=== PATIENT | male | born 1985 | race Two or more races ===

== ENCOUNTER 2018-08-21 13:17 | Emergency (ER) | payer OTHER ==
[~2018-08-21] VITALS: Ht 157.5 cm; Wt 43.3 kg
--- NOTE | 2018-08-21 13:32 | NUR ---
[place] RA 37 from [facility] [place] "Behavioral/not wanting to talk. Uncooperative". PT STATES NOT SURE WHY HE'S HERE, NO COMPLAINTS AT THIS TIME. AOX3, AMBU, VSS, RR EVEN AND UNLABORED. NO ACUTE DISTRESS NOTED. READY FOR EVAL.
[2018-08-21 15:23] LABS: APPEARANCE,URINE Clear (CLEAR); BILIRUBIN,URINE Negative (NEGATIVE); BLOOD, URINE Negative Ery/uL (NEGATIVE); COLOR,URINE Yellow (YELLOW); KETONES,URINE Negative (NEGATIVE); LEUKOCYTE ESTERASE ,URINE Negative (NEGATIVE); NITRITE, URINE Negative (NEGATIVE); PROTEIN,URINE 30 mg/dl (NEGATIVE); UGLUCOSE Negative (NEGATIVE); UROBILINOGEN,URINE 0.2 EU/dL (0.2)
--- NOTE | 2018-08-21 15:48 | NUR ---
Patient is resting comfortably in bed with eyes closed. Easily aroused. VSS
[2018-08-21 15:58] LABS: BASOPHILS % (AUTO) 0.3 % (0.0-2.0); EOSINOPHILS % (AUTO) 1.5 % (0.0-6.0); HEMATOCRIT 37 % (39-51); HEMOGLOBIN 12.1 g/dL (13.5-17.5); LYMPHOCYTES % (AUTO) 32.5 % (20.0-44.0); MEAN CORPUSCULAR HGB CONC 33 g/dl (31.0-36.0); MEAN CORPUSCULAR VOLUME 86 fL (80-96); MONOCYTES # (AUTO) 0.2 /CMM (0.1-1.30); MONOCYTES % (AUTO) 7.4 % (2.0-12.0); NEUTROPHILS # (AUTO) 1.9 /CMM (1.8-8.9); NEUTROPHILS % (AUTO) 58.3 % (43.0-81.0); PLATELET COUNT (AUTO) 131 /CMM (150-450); RED BLOOD CELL COUNT(AUTO) 4.35 MIL/uL (4.5-6.0); WHITE BLOOD COUNT (AUTO) 3.2 K/uL (4.3-11.0)
[2018-08-21 16:05] LABS: CALCIUM, SERUM 9.1 mg/dL (8.5-10.1); CARBON DIOXIDE 29 mmol/L (21-32); CHLORIDE 102 mmol/L (98-107); CREATININE 0.6 mg/dL (0.6-1.3); GLUCOSE 126 mg/dL (74-106); POTASSIUM 4.2 mmol/L (3.5-5.1); SODIUM SERUM 136 mmol/L (136-145); UREA NITROGEN, BLOOD 8 mg/dL (7-18)
[2018-08-21 16:11] LABS: ACETAMINOPHEN 0 ug/ml (10-30); ALANINE AMINOTRANSFERASE 13 U/L (12-78); ALBUMIN 3.8 g/dL (3.4-5.0); ALCOHOL, BLOOD < 3 mg/dL (0-0); ALKALINE PHOSPHATASE 68 U/L (46-116); ASPARTATE AMINOTRANSFERASE 16 U/L (15-37); BILIRUBIN,DIRECT 0.1 mg/dL (0.0-0.2); BILIRUBIN,TOTAL 0.2 mg/dL (0.2-1.0); SALICYLATE 4.2 mg/dL (2.8-20.0); TOTAL PROTEIN, SERUM 8.4 g/dL (6.4-8.2)
[2018-08-21 16:12] LABS: BACTERIA,URINE Rare /HPF (None Seen); RBC,URINE 0-2 /HPF (0-2); SQUAMOUS EPITHELIAL CELL,UR Rare /HPF (None Seen); URINE AMORPHOUS URATE Few /HPF (None Seen); WBC,URINE 0-2 /HPF (0-3)
--- NOTE | 2018-08-21 16:35 | NUR ---
CALLED [facility] FOR TRANSPORT ETA OF 1814 WAS GIVEN. TRIP#[id number]
--- NOTE | 2018-08-21 17:01 | NUR ---
CALLED [facility] INTAKE [phone] THEY HAVE BEDS AND WAITING.
[2018-08-21 17:27] VITALS: BP 120/78
--- NOTE | 2018-08-21 17:34 | NUR ---
Patient is resting comfortably in bed with eyes closed. Easily aroused. VSS
--- NOTE | 2018-08-21 18:13 | NUR ---
REPORT GIVEN TO JUN EMT FOR TRANSPORT. SANDWICH AND JUICE PROVIDED TO PT
--- NOTE | 2018-08-21 18:30 | NUR ---
Patient discharged to [facility] in stable condition. Written and verbal after care instructions given. Patient verbalizes understanding of instruction.
--- NOTE | 2018-08-21 18:30 | NUR ---
Nara robledo in EDM - 08/21/18 at 2005 by CARLOS Patient discharged to home in stable condition. Written and verbal after care instructions given. Patient verbalizes understanding of instruction.
== END 2018-08-21 18:30 ==
LOC: ER 13:21
DX: F20.9 Schizophrenia, unspecified (principal); F19.10 Other psychoactive substance abuse, uncomplicated; D61.818 Other pancytopenia; F32.9 Major depressive disorder, single episode, unspecified; F17.200 Nicotine dependence, unspecified, uncomplicated
CPT/HCPCS: 36415; 80048; 80076; 80305; 80307; 80329; 81001; 85025; 99284; G0480; 81000-TC

== ENCOUNTER 2020-10-16 08:42 | Emergency (ER) | payer MEDICAID, OTHER ==
[~2020-10-16] VITALS: Ht 175.3 cm; Wt 49.9 kg
--- NOTE | 2020-10-16 09:00 | NUR ---
THE PATIENT BIBS FOR C/O SI/HI. +PLAN TO RUN IN FRONT OF TRAIN/TRAFFIC, KILL BUS DRIVERS.REQUESTING VOLUNTARY PSYCH ADMISSION. THE PATIENT IS ALERT AND ORIENTED X3. DENIES PAIN. IN ROOM AIR AND DENIES SOB. RESPIRATION REGULAR AND UNLABORED. SAFETY CHECK DONE. SITTER PRESENT. WILL CONTINUE TO MONITOR THE PATIENT.
[2020-10-16 09:15] LABS: BASOPHILS % (AUTO) 0.1 % (0.0-2.0); EOSINOPHILS % (AUTO) 0.2 % (0.0-6.0); HEMATOCRIT 35 % (39-51); HEMOGLOBIN 11.6 g/dL (13.5-17.5); LYMPHOCYTES # (AUTO) 1.1 /CMM (0.8-4.8); LYMPHOCYTES % (AUTO) 18.5 % (20.0-44.0); MEAN CORPUSCULAR HGB CONC 33 g/dl (31.0-36.0); MEAN CORPUSCULAR VOLUME 92 fL (80-96); MONOCYTES # (AUTO) 0.5 /CMM (0.1-1.30); MONOCYTES % (AUTO) 8.6 % (2.0-12.0); NEUTROPHILS # (AUTO) 4.2 /CMM (1.8-8.9); NEUTROPHILS % (AUTO) 72.6 % (43.0-81.0); PLATELET COUNT (AUTO) 155 /CMM (150-450); RED BLOOD CELL COUNT(AUTO) 3.84 MIL/uL (4.5-6.0); WHITE BLOOD COUNT (AUTO) 5.9 K/uL (4.3-11.0)
[2020-10-16 09:19] LABS: BILIRUBIN,URINE Negative (NEGATIVE); COLOR,URINE YELLOW (YELLOW); LEUKOCYTE ESTERASE ,URINE Negative (NEGATIVE); NITRITE, URINE Negative (NEGATIVE); PROTEIN,URINE Negative (NEGATIVE); UGLUCOSE Negative (NEGATIVE); UROBILINOGEN,URINE 0.2 EU/dL (0.2)
[2020-10-16 09:40] LABS: CALCIUM, SERUM 9.6 mg/dL (8.5-10.1); CARBON DIOXIDE 27 mmol/L (21-32); CHLORIDE 100 mmol/L (98-107); CREATININE 0.6 mg/dL (0.6-1.3); GLUCOSE 75 mg/dL (74-106); POTASSIUM 3.5 mmol/L (3.5-5.1); SODIUM SERUM 138 mmol/L (136-145); UREA NITROGEN, BLOOD 15 mg/dL (7-18)
[2020-10-16 09:47] LABS: ACETAMINOPHEN 0 ug/ml (10-30); ALANINE AMINOTRANSFERASE 25 U/L (12-78); ALBUMIN 4.1 g/dL (3.4-5.0); ALCOHOL, BLOOD < 3 mg/dL (0-0); ALKALINE PHOSPHATASE 71 U/L (46-116); ASPARTATE AMINOTRANSFERASE 22 U/L (15-37); BILIRUBIN,DIRECT 0.1 mg/dL (0.0-0.2); BILIRUBIN,TOTAL 0.4 mg/dL (0.2-1.0); TOTAL PROTEIN, SERUM 8.6 g/dL (6.4-8.2)
[2020-10-16 09:50] LABS: RBC,URINE NONE SEEN /HPF (0-2)
[2020-10-16 09:51] LABS: BACTERIA,URINE None seen /HPF (None Seen); SQUAMOUS EPITHELIAL CELL,UR Rare /HPF (None Seen); WBC,URINE NONE SEEN /HPF (0-3)
--- NOTE | 2020-10-16 10:20 | NUR ---
"Line Analyst consult: visitor services technician consult requested for suicidal ideation, homelessness, and substance use. Patient is 34-year-old, male. SW met with patient at his bedside in the emergency department. Patient was alert and oriented x4. Patient was calm and resting. Per chart, patient presented with suicidal and homicidal ideation on 10/16/20 and requested voluntary inpatient psychiatric placement. Upon consult, patient stated that he is currently experiencing suicidal ideations, without a plan, and requested voluntary inpatient psychiatric placement to [facility]. SW will fax clinicals to [facility] for review. Patient denied homicidal ideation but stated people on the bus were harassing me and telling me to go to the back of the bus. SW assessed patients history of mental illness and patient reported a history of Schizophrenia and Depression. Patient denied history or current hallucinations and delusions. Patient stated that he has been prescribed Risperdal and Trazodone. SW asked patient if he has access to support and patient stated that he has access to a case consultant and therapist at [facility] ([address] [facility]; ). Patient stated that he is currently homeless and receives SSI as a source of income. Patient reported current substance use which includes, cannabis (daily) and methamphetamine use (1x/week). SW offered patient homeless and substance use resources. Patient accepted the resources and thanked SW. Patient signed the homeless waiver and SW filed waiver in the patients chart. JOSEF will fax clinicals to [facility], , for review. PLAN: JOSEF will fax clinicals to [facility] for review. No further SS intervention, however, SW will remain available as needed. RESOURCES: Year-round shelters: [place] [address] [place] [address] ; [place] [facility] [place] [address] [place] [address]; [place] [facility] Svcfqkw0771 [facility]. [facility] [address] SPA 4 | [facility] [place] Provider: First to Serve Address: [address] [place] [address], [facility] # of Beds: 48 Population Served: Coed [facility] Provider: First to Serve Address: [address] [facility] [place], [address] # of Beds: 73 Population Served: Coed SPA 6 | [facility] Provider: Home at Last Address: [address] [facility], [address] # of Beds: 63 Population Served: Coed SPA 3 | [facility] Provider: [facility] [place] Address: [address] [facility], [address] # of Beds: 75 Population Served: Coed SPA 8 | [facility] Provider: [facility] [place] Address: [address] [facility], [address] # of Beds: 80 Population Served: Coed SPA 1 | [facility] Provider: [facility] [place] Address: [address] [place] [address], [address] # of Beds: 85 Population Served: Coed [facility] 2 | [facility] Provider: Jillian [facility] Address: Confidential (please call for location) # of Beds: 52 Population Served: Aldaird [facility] 4 | [facility] Provider: San[facility] Address: 5[address] [facility], [address] # of Beds: 49 Population Served: Jada [facility] Provider: First To Serve Address: 313 [facility], [address] # of Beds: 27 Population Served: Aldaird Hygiene: [facility]: [address] [place] ; [place] [facility] [address]28 [facility] ; [facility] [address] . Food Resources: [place] [facility] at [facility]- [address] [place]; Meet Each Need with Dignity ([facility]) [address] [place]; [facility] Food Pantry 4390 [facility]; [facility] 8544 [facility]iter[facility]. Mental Health resources provided: [facility] [address] [place] [address] ; [facility] Health [place], Inc. 39886 [facility] [address], [place] [address] ; [facility] [address] [facility] [place] [address] ; [facility] [address] [place], [place] [phone] Healthcare Clinics: [facility] 6551 [facility], [address] [place]. [place] ; [facility] 6801 [facility] [address] [place] [address]; [facility] 60887 [facility]. [place] [phone] Counseling--Outpatient [facility] 4419 [facility], [address] [place], [place] [phone] (Specializes in in-depth psychotherapy for emotional distress: anxiety, depression, interpersonal conflicts, life transitions, childhood abuse) PSYCHIATRIC OUTPATIENT SERVICES [facility] Partial Hospitalization and Intensive Outpatient Program (Managed Care and [place] Only) 00220 Critical access hospital [phone] [facility] Partial Hospitalization and Outpatient Program [address] [facility] [facility]. [address] [place], [place] [phone] [facility] Partial Hospitalization and Outpatient Program 4911 [facility]. [place], [place] [phone] [facility] Mental Health [facility] [place] Inc [address] [facility]. [address] [place], [place] [phone] [facility] Partial Hospitalization and Outpatient Program [address] [place], [place] [phone] Substance use resources provided included: [facility] Substance Abuse Self-Helpline (SAS) ; CRI -HELP 68763 [facility]. [place] [address]24971 ; [facility] 85572 [facility] [address] ; [facility] 400 [facility] [address]0004 ; [facility] 8873 [facility] [address] ; [facility] 909 [facility] [phone] ; [facility]; Cri-Help [place]; [place] Herminie Nicki; Alcoholics Anonymous -SFV"
--- NOTE | 2020-10-16 10:25 | NUR ---
Journal Clerk note: JOSEF faxed clinicals to [facility], , for review.
--- NOTE | 2020-10-16 10:30 | NUR ---
PER EXPLOSIVE ORDNANCE DISPOSAL MANAGER MIREYA, PAPERS SENT TO [facility]
--- NOTE | 2020-10-16 11:43 | NUR ---
PER SOCIAL WORKMARTIN THE PATIENT IS ACCESPTED SO JULITO CAMARGO AND MAY GIVE REPORT AT 1215.
--- NOTE | 2020-10-16 12:34 | NUR ---
[facility] ETA 1013
--- NOTE | 2020-10-16 12:54 | NUR ---
REPORT GIVEN TO NURSE ROBERTS
[2020-10-16 13:15] VITALS: BP 133/84
--- NOTE | 2020-10-16 13:15 | NUR ---
THE PATIENT IS DISCHARGED FROM ER IN STABLE CONDITON VIA ARRANGED TRANSPO.
== END 2020-10-16 13:16 ==
LOC: ER 08:51
DX: R45.851 Suicidal ideations (principal); F19.10 Other psychoactive substance abuse, uncomplicated; F20.9 Schizophrenia, unspecified; Z91.14 Patient's other noncompliance with medication regimen; Z59.0 Homelessness; Z20.822 Contact with and (suspected) exposure to COVID-19
CPT/HCPCS: 36415; 80048; 80076; 80143; 80307; 80320; 81001; 85025; 87426; 99285; C9803; G0480

== ENCOUNTER 2020-11-30 02:13 | Emergency (ER) | payer MEDICAID ==
[~2020-11-30] VITALS: Ht 157.5 cm; Wt 59.4 kg
--- NOTE | 2020-11-30 02:30 | NUR ---
PATIENT BIBSELF C/O +SI WITH PLAN "SUICIDE BY POLICE", -HI. PATIENT RR EVEN AND UNLABORED, NO SIGNS OF SOB NOTED. PATIENT BELONGINGS TAKEN AND PLACED IN LOCKER, PATIENT PLACED IN GOWN. SITTER IS AT BEDSIDE. PATIENT PLACED ON CARDIAC AND POX MONITOR.
[2020-11-30 02:46] LABS: CALCIUM, SERUM 9.2 mg/dL (8.5-10.1); CARBON DIOXIDE 28 mmol/L (21-32); CHLORIDE 100 mmol/L (98-107); CREATININE 0.5 mg/dL (0.6-1.3); GLUCOSE 96 mg/dL (74-106); POTASSIUM 3.4 mmol/L (3.5-5.1); SODIUM SERUM 138 mmol/L (136-145); UREA NITROGEN, BLOOD 10 mg/dL (7-18)
[2020-11-30 02:51] LABS: ALANINE AMINOTRANSFERASE 18 U/L (12-78); ALBUMIN 3.6 g/dL (3.4-5.0); ALCOHOL, BLOOD < 3 mg/dL (0-0); ALKALINE PHOSPHATASE 68 U/L (46-116); ASPARTATE AMINOTRANSFERASE 17 U/L (15-37); BILIRUBIN,DIRECT 0.1 mg/dL (0.0-0.2); BILIRUBIN,TOTAL 0.2 mg/dL (0.2-1.0); TOTAL PROTEIN, SERUM 8.2 g/dL (6.4-8.2)
[2020-11-30 02:52] LABS: ACETAMINOPHEN 0 ug/ml (10-30)
[2020-11-30 03:10] LABS: BASOPHILS % (AUTO) 0.3 % (0.0-2.0); EOSINOPHILS % (AUTO) 0.6 % (0.0-6.0); HEMATOCRIT 34 % (39-51); LYMPHOCYTES # (AUTO) 1.5 K/uL (0.8-4.8); LYMPHOCYTES % (AUTO) 26.2 % (20.0-44.0); MEAN CORPUSCULAR HGB CONC 33 g/dl (31.0-36.0); MEAN CORPUSCULAR VOLUME 91 fL (80-96); MONOCYTES # (AUTO) 0.6 K/uL (0.1-1.30); MONOCYTES % (AUTO) 10.5 % (2.0-12.0); NEUTROPHILS # (AUTO) 3.5 K/uL (1.8-8.9); NEUTROPHILS % (AUTO) 62.4 % (43.0-81.0); PLATELET COUNT (AUTO) 53 K/uL (150-450); RED BLOOD CELL COUNT(AUTO) 3.69 MIL/uL (4.5-6.0); WHITE BLOOD COUNT (AUTO) 5.6 K/uL (4.3-11.0)
[2020-11-30 03:13] LABS: BILIRUBIN,URINE SMALL (NEGATIVE); COLOR,URINE DARK YELLOW (YELLOW); LEUKOCYTE ESTERASE ,URINE NEGATIVE (NEGATIVE); NITRITE, URINE NEGATIVE (NEGATIVE); PROTEIN,URINE NEGATIVE (NEGATIVE); UGLUCOSE NEGATIVE (NEGATIVE)
[2020-11-30 03:23] LABS: BACTERIA,URINE None seen /HPF (None Seen); RBC,URINE 0-2 /HPF (0-2); SQUAMOUS EPITHELIAL CELL,UR None Seen /HPF (None Seen); WBC,URINE 0-2 /HPF (0-3)
--- NOTE | 2020-11-30 03:48 | NUR ---
FACESHEET AND CLINICALS FAXED TO RASHAAD LOPEZ.
--- NOTE | 2020-11-30 05:30 | NUR ---
PATINET VSS, PATIENT IN NO ACUTE DISTRESS. WILL CONTINUE TO MONITOR.
[2020-11-30] MEDS ORDERED: LORAZEPAM 1 MG TABLET ONE (09:34)
[2020-11-30] MEDS ORDERED: LORAZEPAM 1 MG TABLET PO ONE (10:00)
--- NOTE | 2020-11-30 10:00 | NUR ---
ACCEPTED AT [facility] GIVE REPORT TO: NATHALIE [phone]
--- NOTE | 2020-11-30 10:01 | NUR ---
CALLED TRANSPORT XANDER LO 45 MINS.
--- NOTE | 2020-11-30 10:45 | NUR ---
Crime Prevention Worker consult: family services worker consult requested for suicidal ideation, homelessness, and substance use. Patient is 35-year-old, male. SW met with patient in the waiting room of the emergency department. Patient was alert and oriented x4. Patient presented calm and appeared appropriately well-groomed. Per chart, patient was brought in to the hospital by self on 11/30/20, presenting with suicidal ideation with a plan,"suicide by police" Patient requested voluntary psychiatric admission. Patient has been accepted to [facility]. Upon consult, patient stated that he is currently experiencing suicidal ideations, with a plan to hang himself and requested voluntary inpatient psychiatric [facility] to [facility]. Patient denied homicidal ideation. SW assessed patients history of mental illness and patient reported a history of Paranoid Schizophrenia and Depression. Patient denied history or current hallucinations and delusions. Patient stated that he has been prescribed Risperdal and Trazodone. SW asked patient if he has access to support and patient stated that he currently has no access to support. Patient stated that he is currently homeless and receives SSI as a source of income. Patient reported current substance use which includes, cannabis (daily) and methamphetamine use (1x/week). SW offered patient homeless, mental health, and substance use resources. Patient accepted the resources and thanked SW. Patient signed the homeless waiver and SW filed waiver in the patients chart. Patient will be transferred to [facility] ([address] [place] [address]; ). PLAN: Patient will be transferred to [facility]. No further SS intervention, however, SW will remain available as needed. RESOURCES: Year-round shelters: [place] [address] [place] [address] ; [place] [facility] [place] [address] [place] [address]; [place] [facility] [id number] [facility]. [facility] [address] SPA 4 | [facility] [place] Provider: First to Serve Address: [address] [place] [address] # of Beds: 48 Population Served: Jada [facility] Provider: First to Serve Address: 7870 [facility] [address] # of Beds: 73 Population Served: Coed SPA 6 | [facility] Provider: Home at Last Address: [address] [facility], [address] # of Beds: 63 Population Served: Coed SPA 3 | [facility] Provider: [facility] [place] Address: 510 [facility], [address] # of Beds: 75 Population Served: Coed SPA 8 | [facility] Provider: [facility] [place] Address: 0477 [facility], [address] # of Beds: 80 Population Served: Coed SPA 1 | [facility] Provider: [facility] [place] Address: [address] [place] [address], [address] # of Beds: 85 Population Served: Coed SPA 2 | [facility] Provider: [facility] Address: Confidential (please call for location) # of Beds: 52 Population Served: [facility] 4 | [facility] Provider: [facility] Address: 5[address] [facility], [address] # of Beds: 49 Population Served: [facility] Provider: First To Serve Address: [address] [place] [address], [address] # of Beds: 27 Population Served: [facility] Hygiene: [facility]: [address] [place] ; [facility] 18825 [facility] ; [facility] [address] . Food Resources: David Food Pantry at [facility]- [address] [place]; Meet Each Need with Dignity ([facility]) [address] [facility]; [facility] 0796 [place]; Our [facility][Note 3] [address] [facility]. Mental Health resources provided: [facility] [address] [place], [place] [address] ; [facility] Health [place], Inc. 24492 [facility] [address], [place], [place] [phone] ; [facility] Urgent Care Center 14291 [place] Jimmy Manuel[place]ads, [place] [phone] ; [facility] [address] [place], [place] [phone] Healthcare Clinics: [facility] 6551 [facility], [address] [place]. [place] ; [facility] 6801 [facility] [address] [place] [address]; [facility] [address]38 [facility] [place] [address] [phone] Counseling--Outpatient [facility] 4419 [facility], [place] [address] (Specializes in in-depth psychotherapy for emotional distress: anxiety, depression, interpersonal conflicts, life transitions, childhood abuse) PSYCHIATRIC OUTPATIENT SERVICES [facility] Partial Hospitalization and Intensive Outpatient Program (Managed Care and [place] Only) 99233 [facility] [phone] [facility] Partial Hospitalization and Outpatient Program 97357 [facility]. [address] [place], [place] [phone] [facility] Partial Hospitalization and Outpatient Program 4911 [facility]. [place], [place] [phone] [facility] Mental Health [place] Inc [address] [facility]. [address] [place], [place] [address] [facility] Partial Hospitalization and Outpatient Program [address] [place], [place] [phone] Substance use resources provided included: [facility] Substance Abuse Self-Helpline (SAS) ; CRI -HELP 13781 [facility] [address] ; [facility] 32645 [facility] [address] ; [facility] 400 [facility] [phone] ; [facility] 7170 [facility] [address] ; [facility] 909 [facility] [phone] ; [facility]; Cri-Help [place]; [place] Nicki; Alcoholics Anonymous -SFV
--- NOTE | 2020-11-30 10:53 | NUR ---
report given to hemal gallagher at [facility].
[2020-11-30 11:00] VITALS: BP 129/70
--- NOTE | 2020-11-30 11:30 | NUR ---
patient picked up by private ambulance [facility] in no distress.
== END 2020-11-30 12:02 ==
LOC: ER 02:13
DX: R45.851 Suicidal ideations (principal); M34.9 Systemic sclerosis, unspecified; F20.0 Paranoid schizophrenia; Z20.822 Contact with and (suspected) exposure to COVID-19
CPT/HCPCS: 36415; 80048; 80076; 80143; 80307; 80320; 81001; 85025; 87426; 99285; C9803; G0480

== ENCOUNTER 2020-12-30 06:10 | Emergency (ER) | payer MEDICAID ==
[~2020-12-30] VITALS: Ht 167.6 cm; Wt 44.5 kg
--- NOTE | 2020-12-30 06:41 | NUR ---
PT BIBS FOR C/O DEPRESSION AND SUICIDAL. REQUESTING VOLUNTARY PSYCH ADMISSION. DOES NOT HAVE ANY PLAN. ALERT AND ORIENTED X3. AMBULATORY WITH NON LABORED BREATHING.
[2020-12-30 06:47] VITALS: BP 128/80
--- NOTE | 2020-12-30 07:10 | NUR ---
COVID SWAB TAKEN AND SENT TO LAB.
--- NOTE | 2020-12-30 07:10 | NUR ---
FACILITY EXAMINER AT BEDSIDE.
[2020-12-30 07:28] LABS: BASOPHILS % (AUTO) 0.6 % (0.0-2.0); EOSINOPHILS % (AUTO) 0.7 % (0.0-6.0); HEMATOCRIT 36 % (39-51); HEMOGLOBIN 11.6 g/dL (13.5-17.5); LYMPHOCYTES # (AUTO) 1.4 K/uL (0.8-4.8); LYMPHOCYTES % (AUTO) 24.8 % (20.0-44.0); MEAN CORPUSCULAR HGB CONC 33 g/dl (31.0-36.0); MEAN CORPUSCULAR VOLUME 90 fL (80-96); MONOCYTES # (AUTO) 0.8 K/uL (0.1-1.30); MONOCYTES % (AUTO) 13.5 % (2.0-12.0); NEUTROPHILS # (AUTO) 3.4 K/uL (1.8-8.9); RED BLOOD CELL COUNT(AUTO) 3.95 MIL/uL (4.5-6.0); WHITE BLOOD COUNT (AUTO) 5.6 K/uL (4.3-11.0)
[2020-12-30 07:30] LABS: BILIRUBIN,URINE NEGATIVE (NEGATIVE); COLOR,URINE YELLOW (YELLOW); LEUKOCYTE ESTERASE ,URINE NEGATIVE (NEGATIVE); NITRITE, URINE NEGATIVE (NEGATIVE); PROTEIN,URINE TRACE mg/dl (NEGATIVE); UGLUCOSE NEGATIVE (NEGATIVE); UROBILINOGEN,URINE 0.2 EU/dL (0.2)
[2020-12-30 07:39] LABS: BACTERIA,URINE None seen /HPF (None Seen); RBC,URINE NONE SEEN /HPF (0-2); SQUAMOUS EPITHELIAL CELL,UR Rare /HPF (None Seen); WBC,URINE 0-2 /HPF (0-3)
[2020-12-30 07:48] LABS: CALCIUM, SERUM 8.9 mg/dL (8.5-10.1); CARBON DIOXIDE 30 mmol/L (21-32); CHLORIDE 102 mmol/L (98-107); CREATININE 0.7 mg/dL (0.6-1.3); GLUCOSE 102 mg/dL (74-106); POTASSIUM 3.3 mmol/L (3.5-5.1); SODIUM SERUM 141 mmol/L (136-145); UREA NITROGEN, BLOOD 11 mg/dL (7-18)
[2020-12-30 07:52] LABS: ALANINE AMINOTRANSFERASE 18 U/L (12-78); ALBUMIN 3.9 g/dL (3.4-5.0); ALCOHOL, BLOOD < 3 mg/dL (0-0); ALKALINE PHOSPHATASE 71 U/L (46-116); ASPARTATE AMINOTRANSFERASE 18 U/L (15-37); BILIRUBIN,DIRECT 0.1 mg/dL (0.0-0.2); BILIRUBIN,TOTAL 0.2 mg/dL (0.2-1.0); TOTAL PROTEIN, SERUM 8.4 g/dL (6.4-8.2)
[2020-12-30 08:10] LABS: ACETAMINOPHEN < 10 ug/ml (10-30)
[2020-12-30 09:42] LABS: EOSINOPHILS % (MANUAL) 2 % (0-4); LYMPHOCYTES % (MANUAL) 35 % (16-48); MONOCYTES % (MANUAL) 4 % (0-11.0); NEUTROPHILS % (MANUAL) 59 (42-76)
[2020-12-30 09:51] LABS: PLATELET COUNT (AUTO) 161 K/uL (150-450)
[2020-12-30 09:54] LABS: NEUTROPHILS % (AUTO) 60.4 % (43.0-81.0)
--- NOTE | 2020-12-30 09:54 | NUR ---
PER LAB NEW PLATELET RESULT IS 147, OLD RESULT WAS CLOTTED.
--- NOTE | 2020-12-30 10:06 | NUR ---
FAXED CLINICALS TO [facility] INTAKE
--- NOTE | 2020-12-30 11:30 | NUR ---
Accepted to Lisa Reina [address] Grant For Report [phone]
--- NOTE | 2020-12-30 11:37 | NUR ---
TRANSPORT [facility] CALLED ETA IS 1215 PER DIVINE.
--- NOTE | 2020-12-30 11:58 | NUR ---
Report given to nurse Lujan from sam Reina.
--- NOTE | 2020-12-30 12:01 | NUR ---
report given to parts identifier, patient transferred to [facility] in stable condition.
== END 2020-12-30 12:17 ==
LOC: ER 06:10
DX: R45.851 Suicidal ideations (principal); F19.10 Other psychoactive substance abuse, uncomplicated; Z59.0 Homelessness; M34.9 Systemic sclerosis, unspecified; F22 Delusional disorders; F15.10 Other stimulant abuse, uncomplicated; F12.10 Cannabis abuse, uncomplicated; Z20.822 Contact with and (suspected) exposure to COVID-19
CPT/HCPCS: 36415; 80048; 80076; 80143; 80307; 80320; 81001; 85007; 85025; 87426; 99285; C9803; G0480

== ENCOUNTER 2021-01-06 07:39 | Emergency (ER) | payer MEDICAID ==
[~2021-01-06] VITALS: Ht 167.6 cm; Wt 52.2 kg
--- NOTE | 2021-01-06 07:52 | NUR ---
PT BENOIT FROM STREETS, C/O DEPRESSION W/ SUICIDAL IDEATION W PLAN TO OVERDOSE ON HIS PSYCH MEDS. DENIES HI. REQUESTING VOLUNTARY PSYCH ADMISSION TO [facility]. VERBALLY RESPONSIVE AND COOPERATIVE TO STAFF. STABLE VITALS. AWAITING MD PRASAD.
--- NOTE | 2021-01-06 07:56 | NUR ---
DR QUINTEROS AWT BEDSIDE FOR EVAL.
--- NOTE | 2021-01-06 08:04 | NUR ---
DISPENSER OPERATOR AT BEDSIDE FOR BLOOD DRAW.
[2021-01-06 08:24] LABS: BILIRUBIN,URINE NEGATIVE (NEGATIVE); COLOR,URINE YELLOW (YELLOW); LEUKOCYTE ESTERASE ,URINE NEGATIVE (NEGATIVE); NITRITE, URINE NEGATIVE (NEGATIVE); PH,URINE 6.5 (5.0-8.0); PROTEIN,URINE NEGATIVE (NEGATIVE); UGLUCOSE NEGATIVE (NEGATIVE); UROBILINOGEN,URINE 0.2 EU/dL (0.2)
[2021-01-06 08:29] LABS: BASOPHILS % (AUTO) 0.6 % (0.0-2.0); EOSINOPHILS % (AUTO) 0.2 % (0.0-6.0); HEMATOCRIT 42 % (39-51); HEMOGLOBIN 13.8 g/dL (13.5-17.5); LYMPHOCYTES # (AUTO) 1.5 K/uL (0.8-4.8); LYMPHOCYTES % (AUTO) 21.8 % (20.0-44.0); MEAN CORPUSCULAR HGB CONC 33 g/dl (31.0-36.0); MEAN CORPUSCULAR VOLUME 90 fL (80-96); MONOCYTES # (AUTO) 0.6 K/uL (0.1-1.30); MONOCYTES % (AUTO) 9.5 % (2.0-12.0); NEUTROPHILS # (AUTO) 4.7 K/uL (1.8-8.9); NEUTROPHILS % (AUTO) 67.9 % (43.0-81.0); RED BLOOD CELL COUNT(AUTO) 4.69 MIL/uL (4.5-6.0); WHITE BLOOD COUNT (AUTO) 6.9 K/uL (4.3-11.0)
[2021-01-06 08:31] LABS: CALCIUM, SERUM 9.7 mg/dL (8.5-10.1); CARBON DIOXIDE 31 mmol/L (21-32); CHLORIDE 99 mmol/L (98-107); CREATININE 0.6 mg/dL (0.6-1.3); GLUCOSE 85 mg/dL (74-106); POTASSIUM 4.8 mmol/L (3.5-5.1); SODIUM SERUM 136 mmol/L (136-145); UREA NITROGEN, BLOOD 11 mg/dL (7-18)
[2021-01-06 08:36] LABS: ALANINE AMINOTRANSFERASE 21 U/L (12-78); ALBUMIN 4.5 g/dL (3.4-5.0); ALKALINE PHOSPHATASE 76 U/L (46-116); ASPARTATE AMINOTRANSFERASE 23 U/L (15-37); BILIRUBIN,DIRECT 0.1 mg/dL (0.0-0.2); BILIRUBIN,TOTAL 0.4 mg/dL (0.2-1.0); TOTAL PROTEIN, SERUM 9.5 g/dL (6.4-8.2)
[2021-01-06 08:47] LABS: ACETAMINOPHEN < 10 ug/ml (10-30); ALCOHOL, BLOOD < 3 mg/dL (0-0)
[2021-01-06 09:13] LABS: PLATELET COUNT (AUTO) 183 K/uL (150-450)
[2021-01-06 09:27] LABS: BACTERIA,URINE Rare /HPF (None Seen); RBC,URINE 0-2 /HPF (0-2); SQUAMOUS EPITHELIAL CELL,UR Rare /HPF (None Seen); WBC,URINE 0-2 /HPF (0-3)
[2021-01-06 09:31] LABS: LYMPHOCYTES % (MANUAL) 27 % (16-48); MONOCYTES % (MANUAL) 5 % (0-11.0); NEUTROPHILS % (MANUAL) 68 (42-76)
--- NOTE | 2021-01-06 12:50 | NUR ---
SS Consult: SS Consult requested for SI & Homelessness. The pt. is a 35- year old Black male who presents to ED with C/O suicidal ideations with plan to "OD on psych medications". The pt. appears unkempt is A&O X3 and makes poor eye contact. P. has pressures speech. Pt.'s mood is depressed with flat affect. Pt. denies visual hallucinations. Pt.'s states he is experiencing AH telling him to hurt people. Pt. admits to having HI and stated it is not toward anyone specifically. Pt. stated he is not med compliant because "it makes me feel vulnerable". SW offered pt. voluntary admission to a psych facility for treatment and pt. is agreeable. Pt. requested [facility]. JOSEF explored pt.'s mental health Hx. Pt. states he has been diagnosed with Paranoid Schizophrenia in the past. SW explored pt.'s living situation. Pt. states he has been homeless for a "a long time". SW explored pt.'s drug & ETOH use. Patient stated he uses Meth (every other day) and Marijuana daily. SW provided addiction resources and pt. accepted. Pt. states he is ambulatory. SW explored pt.'s support system. Pt. states he has no support system. Pt. states he does not receive any financial assistance. Plan: JOSEF referred pt. to [facility] [[place] ] for inpatient psychiatric treatment. Pt. signed homeless waiver and it was placed in the chart. JOSEF provided pt. with homeless, and mental health resources and he accepted them : Year-round shelters: [place] [address] [place] [address] ; [place] [facility] [place] [address] [place] [address]; [place] [facility] Ogzmcle2944 [facility] [address] Winter Shelters: Tasia Laughlin Provider: Marcel[place] of [place] Address: [address], [address] # of Beds: 47 Population Served: [facility] 6 | [facility] Verona Gonzales Qian Provider: Home at Last Address: [address] [facility], [address] # of Beds: 66 Population Served: [facility] [place] Provider: First to Serve Address: 00943 [facility], [address] # of Beds: 56 Population Served: Jada Jayden [place] Provider: /[facility]. [facility] Address: 8900 [facility], [address] # of Beds: 49 Population Served: [facility] SPA 8 | [facility] Provider: First to Serve Address: 4435 [facility], [address] # of Beds: 37 Population Served: [facility] Hygiene: [place] [facility]: [address] [facility] ; [place] [facility] [address]95 [place] [facility] ; [facility] 6907 [facility] . Food Resources: [place] Food Pantry at [facility]- 5700 [facility]; Meet Each Need with Dignity ([facility]) 58886 [facility]; [facility] Food Pantry 4309 [facility]; [facility] 8576 [facility]. Mental Health resources provided: [facility] [address] [place], [place] [phone] ; [facility] Mental Health Center, Inc. 21005 [facility] [address], [place], [place] [phone] ; Corry Marquez [facility] Mental Health Urgent Care Center [address] [place] [address] ; [facility] Health Center [address] [place], [place] [phone] Healthcare Clinics: [facility] 6551 [facility], [address] [place]. [place] ; [facility] 6801 [facility] [address] [place] [address]; [facility] 98479 [facility] [phone] Counseling--Outpatient [facility] [address] [place], [place] [address] (Specializes in in-depth psychotherapy for emotional distress: anxiety, depression, interpersonal conflicts, life transitions, childhood abuse) [facility] 365[address] [place], [place] [address] (Assist with solving problem marital difficulties, separation & divorce, aging parents, & grief, chronic & terminal illness) [facility] [address] [place] [address] (Deal with loss & grief, anxiety, marital difficulties) Homebound/Mental Health Services 21460 [facility] [address] [place] [address] (Provide in-home mental services to people who are incapable of leaving their homes) Organization for Needs of the Elderly Senior Service/Resource Center 26391 [place] [address] [facility] 6514 [place] [address] PSYCHIATRIC OUTPATIENT SERVICES [facility] Partial Hospitalization and Intensive Outpatient Program (Managed Care and [place] Only)82544 [facility] [phone] [facility] Partial Hospitalization and Outpatient Bizsprs47737 [facility] [address] [place], [place] [phone] [facility] Mental Health Center Gye05781 [facility] [address] [place], [place] [phone] [facility] Partial Hospitalization and Outpatient Ucssfki85841 Gucci [place], [phone] Substance Abuse resources provided included: [facility] Substance Abuse Self-Helpline (SASH) ; CRI -HELP 48180 [facility]. [place] [address] ; [facility] [place] [address] [facility] [address] ; [facility] Rehabilitation [facility] 36617 [facility] [address] ; [facility] 400 N. [facility] [phone] ; [facility] 4940 [address] Figueroa [facility] [address] ; Denise [facility] 909 [facility] [phone] ; [facility] Substance Abuse Helpline(SAS)[facility] ; [facility] Family Counseling ; [facility] Henry; Denise [facility] [place]; Cri-Help [place]; I-ADARP Inter [facility] Abuse Recovery Ry Figueroa; [facility] [facility] [place]; [facility] [place]; [facility] [place]; [facility] [place], Inc. Miller; Alcoholics Anonymous -SFV; Km-Nziy-Aljrslv ; Marijuana Anonymous -SFV; Narcotics Anonymous www.na.org;
--- NOTE | 2021-01-06 15:07 | NUR ---
THE PATIENT IS ACCEPTED TO [facility] UNDER DR YADAV FOR REPORT PLEASE CALL TO [phone] EXT [phone]
--- NOTE | 2021-01-06 15:15 | NUR ---
REPORT GIVEN TO NURSE MALIN FROM [facility]
--- NOTE | 2021-01-06 16:58 | NUR ---
CALLED [facility] FOR TRANSPORT TO [facility] ETA 60-75 MINUTES.
--- NOTE | 2021-01-06 18:38 | NUR ---
TRANSPORTED TO [facility] IN STABLE CONDITION. REPORT GIVEN TO NURSING MICHAEL MARROQUIN.
[2021-01-06 18:39] VITALS: BP 127/84
== END 2021-01-06 18:41 ==
LOC: ER 07:40
DX: R45.851 Suicidal ideations (principal); F20.0 Paranoid schizophrenia; M34.9 Systemic sclerosis, unspecified; Z88.0 Allergy status to penicillin; Z59.0 Homelessness; Z20.822 Contact with and (suspected) exposure to COVID-19
CPT/HCPCS: 36415; 80048; 80076; 80143; 80307; 80320; 81001; 85007; 85025; 87426; 99285; C9803; G0480

== ENCOUNTER 2021-01-23 03:32 | Emergency (ER) | payer MEDICAID ==
[~2021-01-23] VITALS: Ht 175.3 cm; Wt 44.5 kg
--- NOTE | 2021-01-23 04:47 | NUR ---
PT AAOX4. BIBSELF C/O SI WITH PLAN TO OD ON PILLS. PLACED IN GOWN, ON MONITOR, AND PULSE OX. AWAITING ER MD FOR EVAL AND ORDERS. NO ACUTE DISTRESS NOTED. SITTER AT BEDSIDE.
--- NOTE | 2021-01-23 04:48 | NUR ---
Nara robledo in ED - 01/23/21 at 0449 by JOSSUE Patient is resting comfortably in bed with eyes closed. Easily aroused. VSS
--- NOTE | 2021-01-23 04:52 | NUR ---
COVID SWAB DONE AND SENT TO LAB
[2021-01-23 05:30] LABS: BILIRUBIN,URINE NEGATIVE (NEGATIVE); COLOR,URINE YELLOW (YELLOW); LEUKOCYTE ESTERASE ,URINE NEGATIVE (NEGATIVE); NITRITE, URINE NEGATIVE (NEGATIVE); PROTEIN,URINE NEGATIVE (NEGATIVE); UGLUCOSE NEGATIVE (NEGATIVE); UROBILINOGEN,URINE 0.2 EU/dL (0.2)
[2021-01-23 05:51] LABS: ALANINE AMINOTRANSFERASE 19 U/L (12-78); ALBUMIN 4.4 g/dL (3.4-5.0); ALCOHOL, BLOOD < 3 mg/dL (0-0); ALKALINE PHOSPHATASE 72 U/L (46-116); ASPARTATE AMINOTRANSFERASE 14 U/L (15-37); BILIRUBIN,DIRECT 0.2 mg/dL (0.0-0.2); BILIRUBIN,TOTAL 0.6 mg/dL (0.2-1.0); CALCIUM, SERUM 9.2 mg/dL (8.5-10.1); CARBON DIOXIDE 29 mmol/L (21-32); CHLORIDE 98 mmol/L (98-107); CREATININE 0.6 mg/dL (0.6-1.3); GLUCOSE 61 mg/dL (74-106); SODIUM SERUM 136 mmol/L (136-145); TOTAL PROTEIN, SERUM 9.5 g/dL (6.4-8.2); UREA NITROGEN, BLOOD 13 mg/dL (7-18)
[2021-01-23 05:54] LABS: ACETAMINOPHEN 0 ug/ml (10-30)
[2021-01-23 06:10] LABS: BASOPHILS % (AUTO) 0.5 % (0.0-2.0); EOSINOPHILS % (AUTO) 0.3 % (0.0-6.0)
[2021-01-23 06:29] LABS: HEMATOCRIT 42 % (39-51); HEMOGLOBIN 13.8 g/dL (13.5-17.5); LYMPHOCYTES # (AUTO) 2.4 K/uL (0.8-4.8); LYMPHOCYTES % (AUTO) 33.3 % (20.0-44.0); MEAN CORPUSCULAR HGB CONC 33 g/dl (31.0-36.0); MEAN CORPUSCULAR VOLUME 89 fL (80-96); MONOCYTES # (AUTO) 0.9 K/uL (0.1-1.30); NEUTROPHILS # (AUTO) 3.9 K/uL (1.8-8.9); NEUTROPHILS % (AUTO) 53.9 % (43.0-81.0); RED BLOOD CELL COUNT(AUTO) 4.75 MIL/uL (4.5-6.0); WHITE BLOOD COUNT (AUTO) 7.2 K/uL (4.3-11.0)
--- NOTE | 2021-01-23 08:09 | NUR ---
THE PATIENT SLEEPING. EASILY RESPNSIVE TO VERBAL STIMULI. RESPIRATION REGULAR AND UNLABORED. WILL CONTINUE TO MONITOR THE PATIENT.
--- NOTE | 2021-01-23 09:06 | NUR ---
FACESHEET AND CLINICALS FAXED TO [facility].
--- NOTE | 2021-01-23 12:36 | NUR ---
CALLED INTAKE NO BEDS YET.
[2021-01-23 13:26] LABS: LYMPHOCYTES % (MANUAL) 32 % (16-48); MONOCYTES % (MANUAL) 12 % (0-11.0); NEUTROPHILS % (MANUAL) 56 (42-76); PLATELET COUNT (AUTO) 154 K/uL (150-450)
--- NOTE | 2021-01-23 15:28 | NUR ---
patient accepted at [facility] number for report [phone]
--- NOTE | 2021-01-23 15:35 | NUR ---
CALLED [facility] ETA 60 MINS PER FRANCISCO.
--- NOTE | 2021-01-23 15:42 | NUR ---
report given to Felicita ARELLANO for amando.
--- NOTE | 2021-01-23 16:26 | NUR ---
REPORT GIVEN TO EMS FOR PT TRANSFER TO [facility].
[2021-01-23 16:27] VITALS: BP 115/83
== END 2021-01-23 16:28 ==
LOC: ER 03:37
DX: R45.851 Suicidal ideations (principal); F19.10 Other psychoactive substance abuse, uncomplicated; M34.9 Systemic sclerosis, unspecified; F20.0 Paranoid schizophrenia; Z59.0 Homelessness; Z20.822 Contact with and (suspected) exposure to COVID-19
CPT/HCPCS: 36415; 80048; 80076; 80143; 80307; 80320; 81003; 85007; 85025; 87426; 99285; C9803; G0480